=== PATIENT | male | born 1955 | race Asian ===

== ENCOUNTER 2017-04-11 15:35 | Inpatient (IN) | payer BC ==
[~2017-04-11] VITALS: Ht 175.3 cm; Wt 87.2 kg
[2017-04-11] MEDS ORDERED: MAG HYDROX/ALUMINUM HYD/SIMETH 30 ML ORAL.SUSP PO PRN (18:45)
[2017-04-11] MEDS ORDERED: MAGNESIUM HYDROXIDE 2,400 MG/30 ML ORAL.SUSP. PO PRN (18:45)
[2017-04-11] MEDS ORDERED: PROCHLORPERAZINE 10 MG/2 ML VIAL. IV PRN (18:45)
[2017-04-11] MEDS ORDERED: CALCIUM CARBONATE 500 MG TAB.CHEW PO PRN (18:45)
[2017-04-11] MEDS ORDERED: IBUPROFEN 400 MG TABLET. PO PRN (18:45)
[2017-04-11] MEDS ORDERED: HEPARIN for IV BOLUS 10,000 UNIT/10 ML VIAL. IV PRN (18:45)
[2017-04-11] MEDS ORDERED: ZOLPIDEM 5 MG TABLET. PO PRN (18:45)
[2017-04-11] MEDS ORDERED: PROCHLORPERAZINE 25 MG SUPP.RECT. PR PRN (18:45)
[2017-04-11] MEDS ORDERED: MORPHINE SULFATE 2 MG/ML DISP.SYRIN. IV PRN (18:45)
[2017-04-11] MEDS ORDERED: ONDANSETRON PF 4 MG/2 ML VIAL. IV PRN (18:45)
[2017-04-11] MEDS ORDERED: BISACODYL 10 MG SUPP.RECT. PR PRN (18:45)
[2017-04-11] MEDS ORDERED: LACTULOSE 20 GM/30 ML SOLUTION. PO PRN (18:45)
[2017-04-11] MEDS ORDERED: KETOROLAC 15 MG/ML VIAL. IV PRN (18:45)
[2017-04-11 19:00] VITALS: BP 163/71
[2017-04-11] MEDS ORDERED: HYDROcodone/APAP 10/325 1 TAB TABLET PO PRN (19:00)
[2017-04-11] MEDS ORDERED: NICOTINE POLACRILEX 2MG GUM PACKAGE of 12. BC PRN (19:00)
[2017-04-11] MEDS: HEPARIN 25,000UTS/500ML PREMIX 500 ML IV PRN (19:00)
--- NOTE | 2017-04-11 19:11 | PDOC1 ---
History and Physical Date of Admission Date of Admission DATE: 04/11/17 TIME: 19:06 Identification/Chief Complaint Chief Complaint chest pain Problems: Source Source: Caregiver, Chart review, Patient History of Present Illness History of Present Illness 61 y.o pleasant male, smoker 1/5 pack a day, HTN and Dyslipidemia on meds (claims complaince) transferred from [place] for CP and elev trop 0.2. Started to have cp at rest, left sided, burning, pressure, no precipitating factor, alleviated by morphine at ER, later then involved the left arm, no reports of diaphoresis or presyncopal sxs. Initially started from the back, VS ok,. EKG shows sravan-septal changes, started on heparin gtt with trop x 1 is 0.2. Transferred here with Cardio aware. CP free. HAs had stress test done before distant past ok, younger bro heart probs < 55 y.o. No etoh but smokes, No DM, no known personal hx CAD. Past Medical History Cardiovascular: HTN, Hyperlipidemia Past Surgical History Past Surgical History: No pertinent history Family History Family History: Heart Disease, High Cholestrol, Hypertension Social History Smoke: <1 pack per day ALCOHOL: none Drugs: None Current Medications Current Medications Current Medications Ondansetron HCl (Zofran) 4 mg PRN Q6HRS PRN IV NAUSEA/VOMITING; Start 04/11/17 at 18:45 Prochlorperazine Edisylate (Compazine) 10 mg PRN Q6HRS PRN IV NAUSEA/VOMITING ( 2nd CHOICE); Start 04/11/17 at 18:45 Prochlorperazine (Compazine) 25 mg PRN Q12HR PRN SD NAUSEA/VOMITING; Start at 18:45 Al Hydroxide/Mg Hydroxide (Mylanta Plus Xs) 30 ml PRN Q3HRS PRN PO HEARTBURN / GAS; Start 04/11/17 at 18:45 Calcium Carbonate/ Glycine (Tums) 500 mg PRN Q3HRS PRN PO UPSET STOMACH; Start 04/11/17 at 18:45 Zolpidem Tartrate (Ambien) 5 mg PRN QHS PRN PO INSOMNIA, MAY REPEAT IN 1HR; Start 04/11/17 at 18:45 Oxycodone HCl (Roxicodone) 5 mg PRN Q3HRS PRN PO BREAKTHROUGH PAIN; Start 04/11 at 18:45 Morphine Sulfate 2 mg PRN Q2HR PRN IV PAIN; Start 04/11/17 at 18:45 Ketorolac Tromethamine (Toradol) 15 mg PRN Q6HRS PRN IV PAIN; Start 04/11/17 at 18:45; Stop 04/16/17 at 18:44 Acetaminophen (Tylenol) 650 mg PRN Q6HRS PRN PO Headaches, Temp > 101.5F; Start 04/11/17 at 18:45 Ibuprofen (Motrin) 400 mg PRN Q6HRS PRN PO MILD PAIN; Start 04/11/17 at 18:45 Docusate Sodium (Colace) 100 mg BID PO ; Start 04/11/17 at 21:00 Magnesium Hydroxide (Milk Of Magnesia) 2,400 mg PRN Q12HR PRN PO CONSTIPATION ( 1ST CHOICE); Start 04/11/17 at 18:45 Lactulose 20 gm PRN Q12HR PRN PO CONSTIPATION (2ND CHOICE); Start 04/11/17 at 18:45 Bisacodyl (Dulcolax Supp) 10 mg PRN DAILY PRN SD CONSTIPATION; Start 04/11/17 at 18:45 Heparin Sodium/ Dextrose 500 ml @ 0 mls/hr CONT PRN IV SEE I/O RECORD; Start at 18:45; Status UNV Heparin Sodium (Porcine) (Heparin Sodium) 1,650 unit PRN Q6HRS PRN IV FOR UFH LEVEL LESS THAN 0.2; Start 04/11/17 at 18:45 Allergies Allergies: Coded Allergies: No Known Drug Allergies (Unverified , 04/11/17) ROS Review of System as per HPI, all else is neg Physical Exam General: Alert, Oriented X3, Cooperative, No acute distress HEENT: Atraumatic, PERRLA, EOMI Lungs: Clear to auscultation, Normal air movement Heart: S1S2, RRR, no thrills, no rubs, no gallops, no murmurs Cardiovascular: S1, S2 Breasts: Normal, Rt breast nml w/o mass, Lt breast nml w/o mass, Nipples normal Abdomen: Normal bowel sounds, Soft, No tenderness, No hepatosplenomegaly, No masses Male Genitals Exam: normal genitalia, normal prostate Extremities: No clubbing, No cyanosis, No edema, Normal pulses, No tenderness/ swelling Skin: No rashes, No breakdown, No significant lesion Neuro: Normal gait, Normal speech, Strength at 5/5 X4 ext, Normal tone, Sensation intact, Cranial nerves 3-12 NL, Reflexes 2+ Psych/Mental Status: Mental status NL, Mood NL VTE Prophylaxis Ordered VTE Prophylaxis Devices: Yes VTE Pharmacological Prophylaxi: Yes Assessment/Plan Assessment/Plan 1, Chest pain at rest 2. Trop elevation (0.2) 3. HTN, Dyslipidemia 4. Smoker 0.5 packa day 5. FAm hx CAD, premature (age < 55) 6, CHronic lumbago - takes hydrocodone 10 PLAN: Admit [facility] CARds consult HEparin gtt advised by cards SHAYE Nicotine prn NPO post MN in case mPI or LHC Dw pt Cont home meds - awaiting them Lipid panel AMANDA Medley MD Apr 11, 2017 19:11
[2017-04-11] MEDS: NICOTINE 21MG PATCH. TD SCH (19:15)
[2017-04-11] MEDS ORDERED: BYSTOLIC10 MG PO (19:46)
[2017-04-11] MEDS ORDERED: ALBU2.5V14 NEB (19:46)
[2017-04-11] MEDS ORDERED: ATOR20TA58 PO (19:46)
[2017-04-11] MEDS ORDERED: VALS320T2 PO (19:46)
[2017-04-11] MEDS ORDERED: FINA5TAB4 PO (19:46)
[2017-04-11] MEDS ORDERED: HYDR-2762 PO (19:46)
[2017-04-11] MEDS ORDERED: TADA20TA PO (19:46)
[2017-04-11] MEDS ORDERED: NAPR500T3 PO (19:46)
[2017-04-11] MEDS ORDERED: FAMO20TA5 PO (19:46)
[2017-04-11] MEDS ORDERED: TADALAFIL 20 MG PO PRN (20:00)
[2017-04-11] MEDS ORDERED: FAMOTIDINE 20 MG TABLET. PO PRN (20:00)
[2017-04-11] MEDS ORDERED: NON FORMULARY ITEM (Albuterol Sulfate (Albuterol Sulfate Conc Neb Soln) 2.5 MG) NEB PRN (20:00)
[2017-04-11] MEDS ORDERED: ALBUTEROL SULFATE 2.5 MG/3 ML NEBU. NEB PRN (20:15)
[2017-04-11 20:21] LABS: CKMB MASS 8.4 ng/mL (0.0-3.6)
[2017-04-11] MEDS: FINASTERIDE 5 MG TABLET. PO SCH (20:41)
[2017-04-11] MEDS: DOCUSATE SODIUM 100 MG CAPSULE. PO SCH (20:41)
[2017-04-11] MEDS: METOPROLOL TART IMMED RELEASE 50 MG TABLET. PO SCH (20:43)
[2017-04-11] MEDS: LOSARTAN POTASSIUM 50 MG TABLET. PO SCH (20:44)
[2017-04-11] MEDS ORDERED: ATORVASTATIN CALCIUM 20 MG TABLET PO SCH (21:00)
[2017-04-11 21:06] LABS: ALBUMIN 3.6 g/dL (3.4-5.0); ALBUMIN/GLOBULIN RATIO 1.1 (1.0-1.7); CALCIUM 8.8 mg/dL (8.5-10.1); CREATININE 0.9 mg/dL (0.7-1.3); GFR 86.4; POTASSIUM 3.7 mmol/L (3.5-5.1); TOTAL BILIRUBIN 0.4 mg/dL (0.2-1.0); TOTAL PROTEIN 6.8 g/dL (6.4-8.2)
[2017-04-11 23:00] VITALS: BP 121/63
[2017-04-12] VITALS (7 sets, daily range): BP systolic 121–180; BP diastolic 52–87
[2017-04-12 04:35] LABS: BASO % 0 % (0-3); EOS % 4 % (0-3); HEMATOCRIT 41.1 % (39.0-53.0); HEMOGLOBIN 14.2 g/dL (13.0-17.5); LYMPH # 3.3 x10^3/uL (1.0-4.8); LYMPH % 37 % (24-48); MEAN CORPUSCULAR HEMOGLOBIN 33 pg (25-35); MEAN CORPUSCULAR HGB CONC 35 g/dL (31-37); MEAN CORPUSCULAR VOLUME 94 fL (79-100); MONO % 10 % (0-9); NEUT % 50 % (31-73); PLATELET COUNT 252 x10^3/uL (140-400); RED BLOOD COUNT 4.37 x10^6/uL (4.30-5.70); RED CELL DISTRIBUTION WIDTH 13.6 % (11.5-14.5)
[2017-04-12 04:42] LABS: PROTHROMBIN TIME PATIENT 12.7 SEC (11.7-14.0)
[2017-04-12 05:07] LABS: CHOLESTEROL 183 mg/dL (0-200); HDLC 24 mg/dL (40-60); NON-HDL CHOLESTEROL 159 mg/dL (0-129); TRIGLYCERIDES 786 mg/dL (0-150)
[2017-04-12 05:28] LABS: CHOLESTEROL/HDL RATIO 7.6
--- NOTE | 2017-04-12 05:45 | ACF ---
Admission Forms Criteria CARDIOLOGY GRG Clinical Indications for Admission to Inpatient Care ( [place]/check or initial the applicable condition/criteria) Hospital admission is needed for appropriate care of the patient because of ANY ONE of the following: [ ] I. Hemodynamic instability as indicated by ALL of the following (1)(2)(3) (4)(5)(6)(7)(8)(9)(10) [ ]a) Vital sign abnormality not readily corrected by appropriate treatment with 12-24 hours for ANY ONE: [ ]i) Hypotension that persists despite appropriate treatment (eg, volume repletion) [ ]ii) Tachycardiathat persists despite appropriate tx ( e.g., analgesia, fluids, sedation as indicated [ ]iii) Orthostatic vital sign changes that persists despite appropriate treatment (eg, volume repletion) [ ]b) Vital sign abnormailty that is severe indicated by ANY ONE of the following: [ ]i) Inadequate perfusion indicated by ANY ONE of the following: [ ] 1) Lactic acidosis (> 2 mmol/L) [ ] 2) New abnormal capillary refill (> 3 seconds) [ ] 3) Reduced urine output [ ] 4) New altered mental status [ ] 5) Myocardial Ischemia [ ] 6) Other metabolic acidosis (arterial pH <7.35 ) not otherwise explained. [ ]ii) Mean arterial pressure[A] less than 60 mm Hg [ ]iii) Mean arterial pressure[A] less than 70 mm Hg after 30 minutes of appropriate treatment (eg, fluid resuscitation) [ ]iv) Sustained heart rate greater than 120 beats per minute in adult or child 6 years or older[B] [ ]v) IV inotropic or vasopressor medication required to maintain adequate blood pressure or perfusion [ ] II. Severe heart failure as indicated by ANY ONE of the following(17)(18) [ ]a) Respiratory distress [ ]b) Hypotension [ ]c) Debilitating anasarca refractory to therapy (eg, tissue breakdown with infection)[C](19) [ ]d) Cardiac arrhythmias of immediate concern [ ]e) Myocardial ischemia [ ] III. Cardiac arrhythmias or findings of immediate concern indicated by ANY ONE of the following (21)(22): [ ] a) Heart rhythms that are inherently dangerous or unstable indicated by ANY ONE of the following (23)(24)(25): [ ] i) Resuscitated ventricular fibrillation or cardiac arrest [ ] ii) Ventricular escape rhythm [ ] iii) Sustained ventricular tachycardia (30 seconds or more of ventricular rhythm at greater than 100 beats per minute) [ ] iv) Nonsustained ventricular tachycardia and ANY ONE of the following: [ ] 1) Suspected cardiac ischemia as cause or consequence of ventricular tachycardia [ ] 2) Acute myocarditis [ ] b) Unstable cardiac conduction defects indicated by ANY ONE of the following(25)(26)(27) [ ] i) Type II second-degree atrioventricular block [ ]ii) Third-degree atrioventricular block [ ]iii) New-onset left bundle branch block with suspected myocardial ischemia [ ]c) Any heart rhythm and ANY ONE of the following (23)(24)(28)(29) (30) [ ] i) Continuous long-term ECG monitoring needed (e.g., initiation of drug requiring monitoring for more than 24 hours) [ ] ii) Patient has automatic implanted cardioverter defibrillator that is repeatedly firing, malfunctioning, or in need of immediate adjustment of settings beyond the scope of ambulatory or observation care [ ]d) Heart rhythms of concern due to ANY ONE of the following: [ ] i) Hypotension [ ] ii) Respiratory distress [ ] iii) Association with other significant symptoms (e.g., bradycardia with syncope or ongoing dizziness, supraventricular tachycardia with chest pain (28)(29)(31) [ ] IV. Monitoring for cardiac contusion beyond the scope of observation care needed [A](32)(33)(34) [ ] V. Surgical or device complication (e.g., valve replacement complication , ICD disfunction or pacemaker dysfunction) (49)(50)(51)(52)(53)(54) [ ] . Inpatient palliative care needed. [F](51)(52) Also use Inpatient Palliative Care Criteria [ ] VII. Nonbacterial thrombotic (marantic) endocarditis(43)(44)(55)(56)(57) [X ] VIII. Cardiology condition, symptom, or finding for which emergency and observation care has failed or are not considered appropriate. [ ] IX. Acute valvular disease requiring inpatient as indicated by ANY ONE of the following (40)(41) [ ]a) Acute valvular regurgitation (42) [ ]b) Noninfectious valvulitis (43)(44) [ ]c) Obstructive valve thrombosis (45)(46) [ ]d) Paravalvular leak(47)(48) [ ]e) Other significant valvular disorder remaining after emergency or observation level of care (as appropriate) [ ]X. Pericardial disease requiring inpatient treatment as indicated by ANY ONE of the following (35)(36)(37)(38) [ ]a) Suspected tamponade [ ]b) Hemopericardium [ ]c) Other significant pericardial disorder remaining after emergency or observation level of care (as appropriate)(39) [ ] XI. Cardiac ischemia beyond scope of emergency and observation care. [ ] XII. Cyanotic heart disease requiring inpatient care as indicated by 1 or more of the following(58)(59)(60): [ ]a) Acute onset of hypoxemia [ ]b) Exacerbation [ ] XIII. Hypertension requiring inpatient treatment as indicated by ANYONE of the following(11)(12)(13)(14): [ ]a) Severe hypertension (SBP greater than 180 mm Hg or DBP greater than 110 mm Hg, or greater than the 95th percentile for age, gender, and height in pediatric patients) that cannot be controlled (eg, to SBP less than 160 mm Hg and DBP less than 100 mm Hg) by emergency department or observation care treatment(15) [ ]b) Acute end organ damage secondary to hypertension (SBP greater than 140 mm Hg or DBP greater than 90 mm Hg) as indicated by ANYONE of the following: [ ] i) Hypertensive encephalopathy (eg, Altered mental status)(16) [ ] ii) Cerebral infarction [ ] iii) Intracranial hemorrhage [ ] iv) Myocardial ischemia or infarction [ ] v) Heart failure (eg, pulmonary edema) [ ] vi) Aortic dissection [ ] vii) Increased creatinine (new) with reduction of more than 50% in estimated glomerular filtration rate from baseline [ ] viii) Papilledema [ ] ix) Retinal hemorrhage [ ] x) Microangiopathic hemolytic anemia [ ] xi) Seizure [ ] xii) Other significant finding secondary to hypertension [ ] XIV. Complications of transplanted heart indicated by ANY ONE of the following(61): [ ]a) Acute graft rejection requiring inpatient management (eg, intravenous imunosuppression)(62)(63) [ ]b) Acute graft heart failure indicated by ANY ONE of the following(64): [ ] i) Hemodynamic instability [ ] ii) Cardiac arrhythmias of immediate concern [ ] iii) Pulmonary edema that is very severe (eg, mechanical ventilation needed, imminent or likely, need for 100% oxygen to keep oxygen saturation above 90%) [ ] iv) Pulmonary edema that is persistent as indicated by ALL of the following: [ ] 1) New need for oxygen therapy to keep oxygen saturation above 90 % (or increased FiO2 need from baseline) [ ] 2) Has not improved sufficiently with emergency department or observation care IV diuretics or other heart failure treatments[E]. [ ] iv) Altered mental status that is severe or persistent [ ] iv) Increased creatinine (new on laboratory test) with reduction of more than 50% in estimated glomerular filtration rate from baseline [ ] iv) Progressively (ongoing) rising creatinine (known from past laboratory test) with reduction of more than 25% in estimated glomerular filtration rate from baseline [ ] iv) Acute renal failure [ ] iv) Acute peripheral ischemia (eg, examination shows pulseless, cool, mottled, or cyanotic extremity) [ ] iv) Pulmonary artery catheter monitoring needed [ ] iv) Other sign or symptom of heart failure requiring inpatient treatment (ie, too severe or not responsive to outpatient and observation care treatment) [ ]c) Infection requiring inpatient management (eg, Hemodynamic instability, need for intravenous antimicrobial treatment)(66)(67)(68)(69)(70) [ ]d) Cardiac allograft vasculopathy requiring inpatient management (eg evidence of cardiacischemia)(71) [ ]e) Other complication of transplanted heart (eg, stroke, severe pulmonary hypertension, severe valvular dysfunction) requiring inpatient management(72) The original [facility] content created by [facility] has been revised. The portions of the content which have been revised are identified through the use of italic text, and [facility] has neither reviewed nor approved the modified material. All other unmodified content is copyright [facility]. Please see references footnoted in the original [facility] edition 2014 Admission Criteria Met?: Yes DAVID MCADAMS Apr 12, 2017 05:45
[2017-04-12] MEDS: DOCUSATE SODIUM 100 MG CAPSULE. PO SCH ×2 (08:56→21:32)
[2017-04-12] MEDS: oxyCODONE IR 5 MG TABLET PO PRN ×3 (08:56→19:42)
[2017-04-12] MEDS: METOPROLOL TART IMMED RELEASE 50 MG TABLET. PO SCH (08:56)
[2017-04-12] MEDS: NICOTINE 21MG PATCH. TD SCH (09:00)
[2017-04-12 09:25] LABS: CALCIUM 8.5 mg/dL (8.5-10.1); CREATININE 1.2 mg/dL (0.7-1.3); MAGNESIUM 1.8 mg/dL (1.8-2.4); POTASSIUM 3.6 mmol/L (3.5-5.1)
[2017-04-12] MEDS ORDERED: hydrALAZINE 20 MG/ML VIAL. IVP PRN (10:00)
--- NOTE | 2017-04-12 10:10 | PDOC2 ---
NICHOLE BROWN STRATEGY ANALYST 04/12/17 1010: CARDIAC CONSULT DATE OF CONSULT Date of Consult DATE: 04/12/17 TIME: 09:37 REASON FOR CONSULT Reason for Consult: Chest pain, elevated troponin REFERRING PHYSICIAN Referring Physician: Johnnie SOURCE Source: Chart review, Patient HISTORY OF PRESENT ILLNESS HISTORY OF PRESENT ILLNESS This is a pleasant 61 yo male admitted for complains of chest and back discomfort. Initially he was at [place] [facility] and transferred here for further cardiac workup. Reports that he does yardwork at times and he has not been having problems with exertion. Yesterday after coming from grocery store, he started having burning sensation to his bilateral shoulder blades then to his chest then to his neck and left arm. There was no nausea, diaphoresis or chest pressure. Ion any palpitations, dizziness, nor SOA. Denies any recent falls or injury. No CAD, VTE. He takes NSAIDs PRN but does not take any ASA at all. HE has HTN, HLP, but no DM and verbalized compliance with his medications. PAST MEDICAL HISTORY Cardiovascular: HTN, Hyperlipidemia Pulmonary: No pertinent hx CENTRAL NERVOUS SYSTEM: Other (No pertinent history) GI: GERD Heme/Onc: No pertinent hx Hepatobiliary: No pertinent hx Psych: No pertinent hx Musculoskeletal: Osteoarthritis Rheumatologic: No pertinent hx Infectious disease: No pertinent hx ENT: No pertinent hx Renal/: Benign prostatic enlarg., Other (ED) Endocrine: No pertinent hx Dermatology: No pertinent hx PAST SURGICAL HISTORY Past Surgical History: Cholecystectomy, Other (vasectomy) SOCIAL HISTORY Smoke: <1 pack per day (>40 pk yr) ALCOHOL: none Drugs: None Lives: Alone CURRENT MEDICATIONS CURRENT MEDICATIONS Current Medications Medications (Trade) Dose Ordered Sig/Sury Route PRN Reason Start Time Stop Time Status Last Admin Dose Admin Oxycodone HCl (Roxicodone) 5 mg PRN Q3HRS PRN PO BREAKTHROUGH PAIN 04/11/17 18:45 04/12/17 08:56 Docusate Sodium (Colace) 100 mg BID PO 04/11/17 21:00 04/12/17 08:56 Heparin Sodium/ Dextrose 500 ml @ 20 mls/hr CONT PRN IV SEE I/O RECORD 04/11/17 18:45 04/11/17 19:00 Heparin Sodium (Porcine) (Heparin Sodium) 1,650 unit PRN Q6HRS PRN IV FOR UFH LEVEL LESS THAN 0.2 04/11/17 18:45 04/12/17 09:01 Atorvastatin Calcium (Lipitor) 20 mg QHS PO 04/11/17 21:00 04/11/17 20:41 Finasteride (Proscar) 5 mg HS PO 04/11/17 21:00 04/11/17 20:41 Metoprolol Tartrate (Lopressor) 50 mg BID PO 04/11/17 21:00 04/12/17 08:56 Losartan Potassium (Cozaar) 100 mg QHS PO 04/11/17 21:00 04/11/17 20:44 ALLERGIES ALLERGIES: Coded Allergies: No Known Drug Allergies (Unverified , 04/11/17) ROS Review of System 14 point ROS evaluated with pertinent positives noted per HPI PHYSICAL EXAM General: Alert, Oriented X3, Cooperative, No acute distress HEENT: Atraumatic, Mucous membr. moist/pink Lungs: Clear to auscultation, Normal air movement Heart: Regular rate, Normal S1, Normal S2, Other (distant heart sounds) Abdomen: Soft, No tenderness Extremities: No cyanosis, No edema Skin: No breakdown, No significant lesion Neuro: Normal speech, Sensation intact Psych/Mental Status: Mental status NL, Mood NL MUSCULOSKELETAL: Osteoarthritic changes both hands VITALS VITALS Vital Signs Date Time Temp Pulse Resp B/P (MAP) Pulse Ox O2 Delivery O2 Flow Rate FiO2 04/12/17 08:56 54 169/78 04/12/17 08:56 Room Air 04/12/17 07:58 97.8 18 96 97.8 LABS Lab: Laboratory Tests Test 04/11/17 19:30 04/11/17 20:55 04/12/17 04:18 04/12/17 07:40 Sodium Level 141 mmol/L (136-145) 139 mmol/L (136-145) Potassium Level 3.7 mmol/L (3.5-5.1) 3.6 mmol/L (3.5-5.1) Chloride Level 104 mmol/L (98-107) 103 mmol/L (98-107) Carbon Dioxide Level 24 mmol/L (21-32) 23 mmol/L (21-32) Anion Gap 13 (6-14) 13 (6-14) Blood Urea Nitrogen 14 mg/dL (8-26) 12 mg/dL (8-26) Creatinine 0.9 mg/dL (0.7-1.3) 1.2 mg/dL (0.7-1.3) Estimated GFR (Cockcroft-Gault) 86.4 62.0 BUN/Creatinine Ratio 16 (6-20) Glucose Level 205 mg/dL (70-99) 142 mg/dL (70-99) Calcium Level 8.8 mg/dL (8.5-10.1) 8.5 mg/dL (8.5-10.1) Phosphorus Level 4.1 mg/dL (2.6-4.7) Magnesium Level 1.7 mg/dL (1.8-2.4) 1.8 mg/dL (1.8-2.4) Total Bilirubin 0.4 mg/dL (0.2-1.0) Aspartate Amino Transf (AST/SGOT) 23 U/L (15-37) Alanine Aminotransferase (ALT/SGPT) 35 U/L (16-63) Alkaline Phosphatase 55 U/L (46-116) Creatine Kinase 177 U/L (39-308) Creatine Kinase MB (Mass) 8.4 ng/mL (0.0-3.6) Creatine Kinase MB Relative Index 4.7 % (0-4) Troponin I Quantitative 0.687 ng/mL (0.000-0.055) 1.265 ng/mL (0.000-0.055) Total Protein 6.8 g/dL (6.4-8.2) Albumin 3.6 g/dL (3.4-5.0) Albumin/Globulin Ratio 1.1 (1.0-1.7) Heparin Anti-Xa Act, Unfractionated 0.31 IU/mL (0.30-0.70) < 0.10 IU/mL (0.30-0.70) < 0.10 IU/mL (0.30-0.70) White Blood Count 9.0 x10^3/uL (4.0-11.0) Red Blood Count 4.37 x10^6/uL (4.30-5.70) Hemoglobin 14.2 g/dL (13.0-17.5) Hematocrit 41.1 % (39.0-53.0) Mean Corpuscular Volume 94 fL (79-100) Mean Corpuscular Hemoglobin 33 pg (25-35) Mean Corpuscular Hemoglobin Concent 35 g/dL (31-37) Red Cell Distribution Width 13.6 % (11.5-14.5) Platelet Count 252 x10^3/uL (140-400) Neutrophils (%) (Auto) 50 % (31-73) Lymphocytes (%) (Auto) 37 % (24-48) Monocytes (%) (Auto) 10 % (0-9) Eosinophils (%) (Auto) 4 % (0-3) Basophils (%) (Auto) 0 % (0-3) Neutrophils # (Auto) 4.5 x10^3uL (1.8-7.7) Lymphocytes # (Auto) 3.3 x10^3/uL (1.0-4.8) Monocytes # (Auto) 0.9 x10^3/uL (0.0-1.1) Eosinophils # (Auto) 0.3 x10^3/uL (0.0-0.7) Basophils # (Auto) 0.0 x10^3/uL (0.0-0.2) Prothrombin Time 12.7 SEC (11.7-14.0) Prothromb Time International Ratio 1.0 (0.8-1.1) Triglycerides Level 786 mg/dL (0-150) Cholesterol Level 183 mg/dL (0-200) LDL Cholesterol, Calculated mg/dL (0-100) VLDL Cholesterol, Calculated 157 mg/dL (0-40) Non-HDL Cholesterol Calculated 159 mg/dL (0-129) HDL Cholesterol 24 mg/dL (40-60) Cholesterol/HDL Ratio 7.6 ASSESSMENT/PLAN ASSESSMENT/PLAN 1. NSTEMI: HR occasionally 40-50s 2. HLP: with high TG 700s 3. HTN: controlled 4. Tobaccoism 5. Significant family hx of premature CAD and cardiomyopathy: Brother first [place] at 26 with CM, other brother with stroke, Father had KS. Recommendations 1. Presently asymptomatic. Will plan for [facility] tomorrow. Risks and benefits explained and agreeable to proceed. 2. ASA. continue with heparin drip. 3. Continue with statin at increased dose and will add fenofibrate 4. A1C, TSH, trend troponin 5. Smoking cessation, dietitian consult 6. TTE. 7. Decrease BB and will add norvasc, continue with losartan. Problems: CINDY OLIVA MD 04/13/17 1058: CARDIAC CONSULT ALLERGIES ALLERGIES: Coded Allergies: No Known Drug Allergies (Unverified , 04/11/17) ASSESSMENT/PLAN ASSESSMENT/PLAN Patient seen and examined 04/12/17. Agree with CARPET TECHNICIAN's assessment and plan. Patient with NSTEMI, currently CP free. Agree with heparin infusion per protocol. Plan for cardiac cath and PCI tomorrow. Advised smoking cessation. Thank you for your consultation. Problems: NICHOLE BROWN APRN Apr 12, 2017 10:10 CINDY OLIVA MD Apr 13, 2017 10:58
[2017-04-12] MEDS: ASPIRIN ENTERIC COATED 325 MG TABLET.DR. PO SCH (10:45)
[2017-04-12] MEDS: amLODIPine BESYLATE 5 MG TABLET PO SCH (10:46)
[2017-04-12] MEDS: FENOFIBRATE 54 MG TABLET. PO SCH (10:48)
--- NOTE | 2017-04-12 11:02 | EKG ---
[facility] [address] [place] [address] Test Date: 2017-04-12 Test Time: 10:51:43 Pat Name: RIKI CENTENO Department: Room: 206 1 Gender: M Manager [employer]: NILS : 1955 Requested By: NICHOLE BROWN Order Number: [id number] Reading MD: Eduar Matthews Measurements Intervals [place] Rate: 53 P: 41 HI: 146 QRS: 64 QRSD: 90 T: 57 QT: 470 QTc: 443 Interpretive Statements SINUS RHYTHM Electronically Signed On 04-13-2017 9:43:25 CDT by Eduar Matthews
--- NOTE | 2017-04-12 11:50 | CARD ---
APPROVED REPORT EXAM: Two-dimensional and M-mode echocardiogram with Doppler and color Doppler. Other Information Quality : Fair INDICATION Non STEMI RISK FACTORS Smoking 2D DIMENSIONS RVDd2.4 (2.9-3.5cm)Left Atrium(2D)3.2 (1.6-4.0cm) IVSd1.2 (0.7-1.1cm)Aortic Root(2D)2.6 (2.0-3.7cm) LVDd4.9 (3.9-5.9cm)LVOT Diameter2.0 (1.8-2.4cm) PWd1.1 (0.7-1.1cm)LVDs2.4 (2.5-4.0cm) FS (%) 30.0 %SV92.6 ml LVEF(%)60.0 (>50%) Aortic Valve AoV Peak Pranav.166.2cm/sAoV VTI32.3cm AO Peak GR.11.1mmHgLVOT Peak Pranav.131.5cm/s LVOT VTI 29.05cmAO Mean GR.6mmHg EVA (VMAX)2.37ch6UQM (VTI)2.83cm2 Mitral Valve MV E Qiawifhu031.2cm/sMV DECEL [id number] MV A Fvpfqfds75.2cm/sMV BBZ64az E/A Ratio1.2MVA (PHT)2.77cm2 TDI E/Lateral E'13.0E/Medial E'20.4 Tricuspid Valve TR P. Vvljyphf994ur/sRAP [id number] TR Peak Gr.49gtYnYNLQ33hcCr Pulmonary Vein S1 Gytdpopz59.6cm/sD2 Pwpvftej02.1cm/s LEFT VENTRICLE The left ventricle is normal size. There is mild asymmetric septal left ventricular hypertrophy. The left ventricular systolic function is normal and the ejection fraction is within normal range. EF 55% There is normal LV segmental wall motion. Transmitral Doppler flow pattern is Grade I-abnormal relax ation pattern. RIGHT VENTRICLE The right ventricle is normal size. The right ventricular systolic function is normal. ATRIA The left atrium size is normal. The right atrium size is normal. The interatrial septum is intact wit h no evidence for an atrial septal defect or patent foramen ovale as noted on 2-D or Doppler imaging. AORTIC VALVE The aortic valve is sclerotic but opens well. Doppler and Color Flow revealed no significant aortic r egurgitation. There is no significant aortic valvular stenosis. MITRAL VALVE The mitral valve is calcified but opens well. There is no evidence of mitral valve prolapse. There is no mitral valve stenosis. Doppler and Color-flow revealed trace mitral regurgitation. TRICUSPID VALVE The tricuspid valve is normal in structure and function. Doppler and Color Flow revealed mild tricusp id regurgitation. The PA pressure was estimated at 32 mmHg. There is no tricuspid valve stenosis. PULMONIC VALVE The pulmonary valve is not well visualized but appears to be functioning normally by Doppler interrog ation. Doppler and Color Flow revealed no pulmonic valvular regurgitation. There is no pulmonic valvu lar stenosis. GREAT VESSELS The aortic root is normal in size. The ascending aorta is normal in size. The IVC is normal in size a nd collapses >50% with inspiration. PERICARDIAL EFFUSION There is no evidence of significant pericardial effusion. Critical Notification Critical Value: No <Conclusion> The left ventricular systolic function is normal and the ejection fraction is within normal range. EF 55% There is normal LV segmental wall motion.
[2017-04-12] MEDS: ACETAMINOPHEN 325 MG TABLET. PO PRN (13:41)
--- NOTE | 2017-04-12 13:58 | PDOC ---
PROGRESS NOTES Chief Complaint Chief Complaint Chest pain ASSESSMENT AND PLAN: 1. NSTEMI: elevated troponins tapering off. on heparin. cath in AM 2. HTN: poorly controlled. Norvasc added 3. HLD: cholesterol not optimally controlled on statin, severe hypertrigliceridemia. increase statin, add fenofibrate 3. Tobaccoism: encouraged cessation 4. GERD: H2B History of Present Illness History of Present Illness no pain. bored Vitals Vitals Vital Signs Date Time Temp Pulse Resp B/P (MAP) Pulse Ox O2 Delivery O2 Flow Rate FiO2 04/12/17 12:09 Room Air 04/12/17 12:00 54 160/72 (101) 04/12/17 10:37 97.7 20 97 97.7 Physical Exam General: Alert, Oriented X3, Cooperative, No acute distress Heart: Regular rate Abdomen: Soft, No tenderness Extremities: No cyanosis, No edema Skin: No significant lesion Labs LABS Laboratory Tests Test 04/11/17 19:30 04/11/17 20:55 04/12/17 04:18 04/12/17 07:40 Sodium Level 141 mmol/L (136-145) 139 mmol/L (136-145) Potassium Level 3.7 mmol/L (3.5-5.1) 3.6 mmol/L (3.5-5.1) Chloride Level 104 mmol/L (98-107) 103 mmol/L (98-107) Carbon Dioxide Level 24 mmol/L (21-32) 23 mmol/L (21-32) Anion Gap 13 (6-14) 13 (6-14) Blood Urea Nitrogen 14 mg/dL (8-26) 12 mg/dL (8-26) Creatinine 0.9 mg/dL (0.7-1.3) 1.2 mg/dL (0.7-1.3) Estimated GFR (Cockcroft-Gault) 86.4 62.0 BUN/Creatinine Ratio 16 (6-20) Glucose Level 205 mg/dL (70-99) 142 mg/dL (70-99) Calcium Level 8.8 mg/dL (8.5-10.1) 8.5 mg/dL (8.5-10.1) Phosphorus Level 4.1 mg/dL (2.6-4.7) Magnesium Level 1.7 mg/dL (1.8-2.4) 1.8 mg/dL (1.8-2.4) Total Bilirubin 0.4 mg/dL (0.2-1.0) Aspartate Amino Transf (AST/SGOT) 23 U/L (15-37) Alanine Aminotransferase (ALT/SGPT) 35 U/L (16-63) Alkaline Phosphatase 55 U/L (46-116) Creatine Kinase 177 U/L (39-308) Creatine Kinase MB (Mass) 8.4 ng/mL (0.0-3.6) Creatine Kinase MB Relative Index 4.7 % (0-4) Troponin I Quantitative 0.687 ng/mL (0.000-0.055) 1.265 ng/mL (0.000-0.055) Total Protein 6.8 g/dL (6.4-8.2) Albumin 3.6 g/dL (3.4-5.0) Albumin/Globulin Ratio 1.1 (1.0-1.7) Heparin Anti-Xa Act, Unfractionated 0.31 IU/mL (0.30-0.70) < 0.10 IU/mL (0.30-0.70) < 0.10 IU/mL (0.30-0.70) White Blood Count 9.0 x10^3/uL (4.0-11.0) Red Blood Count 4.37 x10^6/uL (4.30-5.70) Hemoglobin 14.2 g/dL (13.0-17.5) Hematocrit 41.1 % (39.0-53.0) Mean Corpuscular Volume 94 fL (79-100) Mean Corpuscular Hemoglobin 33 pg (25-35) Mean Corpuscular Hemoglobin Concent 35 g/dL (31-37) Red Cell Distribution Width 13.6 % (11.5-14.5) Platelet Count 252 x10^3/uL (140-400) Neutrophils (%) (Auto) 50 % (31-73) Lymphocytes (%) (Auto) 37 % (24-48) Monocytes (%) (Auto) 10 % (0-9) Eosinophils (%) (Auto) 4 % (0-3) Basophils (%) (Auto) 0 % (0-3) Neutrophils # (Auto) 4.5 x10^3uL (1.8-7.7) Lymphocytes # (Auto) 3.3 x10^3/uL (1.0-4.8) Monocytes # (Auto) 0.9 x10^3/uL (0.0-1.1) Eosinophils # (Auto) 0.3 x10^3/uL (0.0-0.7) Basophils # (Auto) 0.0 x10^3/uL (0.0-0.2) Prothrombin Time 12.7 SEC (11.7-14.0) Prothromb Time International Ratio 1.0 (0.8-1.1) Triglycerides Level 786 mg/dL (0-150) Cholesterol Level 183 mg/dL (0-200) LDL Cholesterol, Calculated mg/dL (0-100) VLDL Cholesterol, Calculated 157 mg/dL (0-40) Non-HDL Cholesterol Calculated 159 mg/dL (0-129) HDL Cholesterol 24 mg/dL (40-60) Cholesterol/HDL Ratio 7.6 Test 04/12/17 11:15 Troponin I Quantitative 0.865 ng/mL (0.000-0.055) GARCÍA MEHTA MD Apr 12, 2017 13:58
[2017-04-12] MEDS: HEPARIN 25,000UTS/500ML PREMIX 500 ML IV PRN (16:06)
[2017-04-12 20:44] LABS: BILIRUBIN,URINE NEGATIVE (NEG); GLUCOSE,URINE NEGATIVE (NEG); NITRITE,URINE NEGATIVE (NEG); PROTEIN,URINE NEGATIVE (NEG-TRACE); UROBILINOGEN,URINE 0.2 mg/dL (0.2 mg/dL)
[2017-04-12] MEDS: METOPROLOL TART IMMED RELEASE 25 MG TABLET. PO SCH (21:00)
[2017-04-12 21:01] LABS: BACTERIA,URINE 0 /HPF (0-FEW); RBC,URINE 0 /HPF (0-2); SQUAMOUS EPITHELIAL CELL,UR OCC /LPF; WBC,URINE OCC /HPF (0-4)
[2017-04-12] MEDS: LOSARTAN POTASSIUM 50 MG TABLET. PO SCH (21:31)
[2017-04-12] MEDS: ATORVASTATIN CALCIUM 40 MG TABLET. PO SCH (21:31)
[2017-04-12] MEDS: FINASTERIDE 5 MG TABLET. PO SCH (21:32)
[2017-04-12] MEDS: HYDROcodone/APAP 7.5/325MG 1 TAB TABLET PO PRN (21:33)
[2017-04-13] VITALS (17 sets, daily range): BP systolic 135–192; BP diastolic 61–96
[2017-04-13] MEDS: oxyCODONE IR 5 MG TABLET PO PRN ×3 (01:50→17:47)
[2017-04-13] MEDS: ASPIRIN ENTERIC COATED 325 MG TABLET.DR. PO SCH (08:00)
[2017-04-13] MEDS ORDERED: LIDOCAINE 2% 20 ML VIAL. ONE (08:50)
[2017-04-13] MEDS ORDERED: IOHEXOL 300 MG/ML 100ML VIAL. ONE ×3 (08:51→10:23)
[2017-04-13] MEDS ORDERED: LIDOCAINE 2% 20 ML VIAL. IJ ONE (09:00)
[2017-04-13] MEDS ORDERED: NITROGLYCERIN 200 MCG/2 ML SYRINGE FOR CATH/VASC LAB. IART ONE (09:00)
[2017-04-13] MEDS ORDERED: VERAPAMIL 5 MG/2 ML VIAL. IART ONE (09:00)
[2017-04-13] MEDS ORDERED: HEPARIN for IV BOLUS 10,000 UNIT/10 ML VIAL. IART ONE (09:00)
[2017-04-13] MEDS: NICOTINE 21MG PATCH. TD SCH ×2 (09:00→14:44)
[2017-04-13] MEDS: DOCUSATE SODIUM 100 MG CAPSULE. PO SCH ×2 (09:00→19:43)
[2017-04-13] MEDS: amLODIPine BESYLATE 5 MG TABLET PO SCH (09:00)
[2017-04-13] MEDS: METOPROLOL TART IMMED RELEASE 25 MG TABLET. PO SCH ×2 (09:00→19:44)
[2017-04-13] MEDS ORDERED: MIDAZOLAM HCL/PF 2 MG/2 ML VIAL. IV ONE (09:00)
[2017-04-13] MEDS ORDERED: IOHEXOL 300 MG/ML 100ML VIAL. IART ONE (09:00)
[2017-04-13] MEDS ORDERED: fentaNYL PF VIAL 100 MCG/2 ML VIAL IV ONE (09:00)
[2017-04-13] MEDS ORDERED: CONTRAST GIVEN MC PRN (09:15)
[2017-04-13] MEDS ORDERED: BIVALIRUDIN 250 MG VIAL. IV ONE ×2 (09:39→09:45)
[2017-04-13] MEDS ORDERED: ASPIRIN 325 MG TABLET ONE (09:39)
[2017-04-13] MEDS ORDERED: CLOPIDOGREL BISULFATE 75 MG TABLET ONE (09:40)
[2017-04-13] MEDS ORDERED: CLOPIDOGREL BISULFATE 75 MG TABLET PO ONE (09:45)
[2017-04-13] MEDS ORDERED: ASPIRIN 325 MG TABLET PO ONE (09:45)
[2017-04-13] MEDS ORDERED: MIDAZOLAM HCL/PF 2 MG/2 ML VIAL. ONE (10:14)
[2017-04-13] MEDS ORDERED: fentaNYL PF VIAL 100 MCG/2 ML VIAL ONE (10:14)
[2017-04-13] MEDS ORDERED: PRASUGREL 10 MG TABLET. PO ONE (10:45)
--- NOTE | 2017-04-13 10:46 | PDOC ---
MODERATE SEDATION ASSESSMENT RISKS/ALTERNATIVES Risks/Alternatives Risks and alternatives of this type of sedation and procedure discussed with: RISK/ALTERNATIVES: Patient H & P ON CHART H & P H & P on chart and reviewed for co-morbid conditions and appropriate labs. H&P ON CHART: Yes STATUS PREG STATUS ASSESSED: N/A MEDS/ALLERGIES REVIEWED Meds/Allergies Reviewed Medications and Allergies including time and route of recently administered narcotics and sedatives. MEDS/ALLERGIES REVIEWED: Yes ASA RATING ASA RATING: II AIRWAY ASSESSMENT Airway Assessment Airway patency, oral function limitations, presence of caps, crowns, dentures, partials, and ability to extend neck assessed. AIRWAY ASSESSMENT: Yes MALLAMPATI SCORE MALLAMPATI SCORE: II PRE-SEDATION ASSESSMENT PRE-SEDATION ASSESSMENT: Yes CINDY OLIVA MD Apr 13, 2017 10:46
[2017-04-13] MEDS ORDERED: ACETAMINOPHEN 325 MG TABLET. PO PRN (11:00)
[2017-04-13] MEDS ORDERED: NITROGLYCERIN SUBLINGUAL 0.4 MG BOTTLE OF 25. SL PRN (11:00)
[2017-04-13] MEDS ORDERED: IV 1/2 NORMAL SALINE 1,000 ML IV SCH (11:30)
[2017-04-13] MEDS: ACETAMINOPHEN 325 MG TABLET. PO PRN (11:34)
[2017-04-13] MEDS: FENOFIBRATE 54 MG TABLET. PO SCH (11:34)
--- NOTE | 2017-04-13 11:52 | CARD ---
APPROVED REPORT Procedure(s) performed: 1. Left heart catheterization, selective coronary angiography via right gonzalez sradial approach 2. Successful PCI/drug eluting stents placement to the right coronary artery and the posterior desce nding artery 3. Successful PCI/drug eluting stent placement to the obtuse marginal branch of left circumflex carlos ry Sedation Time: 88 mins INDICATION The indication(s) include : non-STEMI . PROCEDURE NARRATIVE After explaining the risks, benefits and alternative options, informed consent was obtained from nany ent. Patient was brought to the cardiac Actor Understudy and right wrist was prepped and draped in the usual fashion after confirming a positive modified Fercho's test. Arterial access was obtained in the righ t radial artery and a 6 [place] sheath was inserted. 6 [place] Stefano catheter was used to perform abdiel ective angiography of the left and right coronary arteries. LVEDP and transaortic gradients remeasure d. Left ventriculography was not performed due to recent 2-D echocardiogram and contrast load used du ring the procedure. The following findings were noted. FINDINGS 1. Hemodynamics: Left ventricular end-diastolic pressure of 17 mmHg. No pullback gradient across th e aortic valve. 2. Coronary angiography: a. The left main coronary artery arose from the left sinus of Valsalva, gave rise to the left anteri or descending and left circumflex arteries and did not show any significant stenosis. b. The left anterior descending artery showed 40% stenosis in the midsegment. c. The left circumflex artery showed 30% stenosis in the midsegment. The obtuse marginal branch whic h is a medium caliber vessel showed 80% stenosis in the proximal segment. d. The right coronary artery was a large and dominant vessel arising from the right sinus of Valsalv a that showed 80% stenosis in the proximal to midsegment, 70% stenosis in the midsegment, 90% stenosi s in the distal segment and 90-95% stenosis in the proximal segment of posterior descending branch. INTERVENTION The right coronary artery was engaged with a 6 [place] JR4 guide catheter and the stenoses in the righ t coronary artery and the posterior descending branch were crossed with a 0.014 inch iWantoowater g uidewire. These were predilated with a 2.5 x 15 mm trek balloon. The distal RCA and posterior descend ing branch stenoses were treated with overlapping 2.75 x 38 mm and 3.0 x 12 mm Xience Alpine drug-elu ting stents. The midsegment stenosis was treated with a 3.0 x 12 mm and the proximal to midsegment st enosis was treated with a 3.5 x 28 mm Xience Alpine drug-eluting stents. Follow-up angiography showed resolution of the stenoses to 0% with SOLO-3 distal flow. Subsequently, the left main coronary arter y was engaged with a 6 [place] EBU 3.5 guide catheter and the stenosis in the proximal segment of the obtuse marginal branch was crossed with the same prowater guidewire. This was directly treated with a 2.5 x 23 mm Xience Alpine drug-eluting stent. Follow-up angiography showed resolution of the stenosi s to 0% with SOLO-3 distal flow. Patient tolerated the procedure well. Hemostasis was achieved using TR band. There were no immediate complications. Conclusion 1. Two-vessel coronary artery disease 2. Successful PCI/drug eluting stents placement to the right coronary artery, posterior descending a rtery and the obtuse marginal branch of left circumflex artery Recommendations 1. Aspirin 325 mg daily 2. Effient 10 mg daily for preferably one year 3. Cardiovascular risk factor modification including smoking cessation
[2017-04-13] MEDS ORDERED: hydrALAZINE 20 MG/ML VIAL. IVP PRN (12:30)
[2017-04-13] MEDS: HYDROcodone/APAP 7.5/325MG 1 TAB TABLET PO PRN (12:58)
--- NOTE | 2017-04-13 13:47 | RAD ---
Exam performed: One view chest. Indication: post cath acute SOA Date of Service: 04/13/2017 3:17 PM Comparison: None available. Single AP upright portable view chest findings: Cardiomediastinal silhouette is within limits of normal. No acute infiltrates, effusion or pneumothorax is detected. The bony structures are normal. Impression: No acute cardiopulmonary process is detected.
--- NOTE | 2017-04-13 14:37 | PDOC ---
Provider Note Provider Note 04/13/2017 1420 Pt complains of SOA while supine and better when upright or at semi fowlers and intermittent. O2 sat on RA in the upper 90s, no hemodynamic decompensation, he is CP free, lungs are clear to auscultation and CXR unremarkable for acute changes. Albuterol treatment was given. BP initially elevated and better after hydralazine. Will increase norvasc. Right wrist arteriotomy site intact with TR band. Positive for nausea relieved by zofran. No deoxygenation noted and no rhythm changes. Pt is significant for opioid use and tobaccoism. Suspecting anxiety/panic attack. Start on nicotine patch, x1 ativan. Continue post cath protocol. NICHOLE BROWN APRN Apr 13, 2017 14:37
[2017-04-13] MEDS ORDERED: amLODIPine BESYLATE 5 MG TABLET PO ONE (15:00)
[2017-04-13] MEDS ORDERED: LORazepam 0.5 MG TABLET PO ONE (15:00)
--- NOTE | 2017-04-13 15:49 | PDOC ---
PROGRESS NOTES Chief Complaint Chief Complaint Chest pain ASSESSMENT AND PLAN: 1. NSTEMI: elevated troponins tapering off. on heparin. cath with 5 stents today. started on effient 2. HTN: poorly controlled. Norvasc added; cont to monitor 3. HLD: cholesterol not optimally controlled on statin, severe hypertrigliceridemia. increase statin, add fenofibrate 4. Tobaccoism: encouraged cessation 5. GERD: H2B 6. anxiety: ativan PO PRN 7. Dispo: anticipate home in AM History of Present Illness History of Present Illness anxious. still mild chest pressure, orthopnea Vitals Vitals Vital Signs Date Time Temp Pulse Resp B/P (MAP) Pulse Ox O2 Delivery O2 Flow Rate FiO2 04/13/17 14:46 64 177/71 04/13/17 14:00 100 04/13/17 13:58 16 Room Air 04/13/17 13:34 2.0 04/13/17 11:00 97.5 97.5 Physical Exam General: Alert, Oriented X3, Cooperative, No acute distress Heart: Regular rate Lungs: Clear Abdomen: Soft, No tenderness Extremities: No cyanosis, No edema Skin: No significant lesion Labs LABS Laboratory Tests Test 04/12/17 21:05 04/13/17 06:00 Heparin Anti-Xa Act, Unfractionated 0.20 IU/mL (0.30-0.70) 0.42 IU/mL (0.30-0.70) GARCÍA MEHTA MD Apr 13, 2017 15:49
[2017-04-13] MEDS ORDERED: NITROGLYCERIN 200 MCG/2 ML SYRINGE FOR CATH/VASC LAB. ONE (15:59)
[2017-04-13] MEDS ORDERED: Nicotine 21MG TD (16:20)
[2017-04-13] MEDS ORDERED: ANTI-COAG MONITOR BY PHARMACY. MC PRN (16:45)
[2017-04-13] MEDS: LOSARTAN POTASSIUM 50 MG TABLET. PO SCH (19:43)
[2017-04-13] MEDS: ATORVASTATIN CALCIUM 40 MG TABLET. PO SCH (19:43)
[2017-04-13] MEDS: FINASTERIDE 5 MG TABLET. PO SCH (19:43)
[2017-04-14 03:25] VITALS: BP 150/82
[2017-04-14 06:46] LABS: HEMATOCRIT 44.5 % (39.0-53.0); HEMOGLOBIN 15.1 g/dL (13.0-17.5); RED BLOOD COUNT 4.71 x10^6/uL (4.30-5.70); RED CELL DISTRIBUTION WIDTH 13.6 % (11.5-14.5); WHITE BLOOD COUNT 10.9 x10^3/uL (4.0-11.0)
[2017-04-14 07:00] VITALS: BP 148/81
[2017-04-14] MEDS ORDERED: ASPIRIN ENTERIC COATED 325 MG TABLET.DR. PO SCH (08:00)
[2017-04-14] MEDS ORDERED: PRASUGREL 10 MG TABLET. PO SCH (08:00)
[2017-04-14] MEDS ORDERED: amLODIPine BESYLATE 10 MG TABLET PO SCH (09:00)
[2017-04-14] MEDS: FENOFIBRATE 54 MG TABLET. PO SCH (09:14)
[2017-04-14] MEDS: ASPIRIN ENTERIC COATED 325 MG TABLET.DR. PO SCH (09:15)
[2017-04-14] MEDS: METOPROLOL TART IMMED RELEASE 25 MG TABLET. PO SCH (09:15)
[2017-04-14] MEDS: NICOTINE 21MG PATCH. TD SCH (09:15)
[2017-04-14] MEDS: DOCUSATE SODIUM 100 MG CAPSULE. PO SCH (09:16)
[2017-04-14] MEDS: HYDROcodone/APAP 7.5/325MG 1 TAB TABLET PO PRN (09:19)
[2017-04-14 11:00] VITALS: BP 140/73
--- NOTE | 2017-04-14 12:21 | PDOC ---
[facility] ADMINISTRATOR 04/14/17 1220: CARDIO Progress Notes Date and Time Date of Service 04/14/2017 Time of Evaluation 1150 Subjective Subjective: No Chest Pain, No shortness of breath, No Palpitations, No Dizziness Vitals Vitals Vital Signs Date Time Temp Pulse Resp B/P (MAP) Pulse Ox O2 Delivery O2 Flow Rate FiO2 04/14/17 11:00 98.0 63 18 140/73 (95) 96 Room Air 98.0 04/14/17 00:05 2.0 Weight Weight [ ] Laboratory Labs Laboratory Tests Test 04/14/17 05:20 White Blood Count 10.9 x10^3/uL (4.0-11.0) Red Blood Count 4.71 x10^6/uL (4.30-5.70) Hemoglobin 15.1 g/dL (13.0-17.5) Hematocrit 44.5 % (39.0-53.0) Mean Corpuscular Volume 94 fL (79-100) Mean Corpuscular Hemoglobin 32 pg (25-35) Mean Corpuscular Hemoglobin Concent 34 g/dL (31-37) Red Cell Distribution Width 13.6 % (11.5-14.5) Platelet Count 266 x10^3/uL (140-400) Physical Exam HEENT: Neck Supple W Full Motion Chest: Symmetric LUNGS: Other (basilar wheeze) Heart: S1S2, RRR (SR) Abdomen: Soft N/T Extremities: No Edema, No Calf Tenderness Neurology: alert, oriented, follow commands Other Exams right wrist arteriotomy site intact, no erythema or swelling, neurovascular status intact to RUE Assessment Assessment 1. NSTEMI: S/P PCI/ARNOLD to RCA, PDA,OM of LCx. Doing well 2. HLP: with high TG 700s 3. HTN: controlled. Unable to titrate up BB due to bradycardia episodes 4. Tobaccoism with likely COPD 5. Significant family hx of premature CAD and cardiomyopathy: Brother first [place] at 26 with CM, other brother with stroke, Father had [place]. Recommendations 1. Continue with current regimen. DAPT effient/ASA 2. Cardiac rehab, Lipids in 6-8 weeks. 3. Smoking cessation 4. F/U in office in 4-5 weeks. CINDY OLIVA MD 04/14/17 1601: CARDIO Progress Notes Assessment Assessment Patient seen and examined. Agree with PATENT LITIGATION ASSOCIATE's assessment and plan. s/p PCI/ARNOLD to RCA, LCX, stable and CP free OK for DC from cardiac standpoint. Follow up in one month NICHOLE BROWN APRN Apr 14, 2017 12:20 CINDY OLIVA MD Apr 14, 2017 16:01
[2017-04-14] MEDS ORDERED: NITR0.4T SL (12:57)
[2017-04-14] MEDS ORDERED: METO25TA4 PO (12:57)
[2017-04-14] MEDS ORDERED: NICO2GUM42 BC (12:57)
[2017-04-14] MEDS ORDERED: PRAS10TA9 PO (12:57)
[2017-04-14] MEDS ORDERED: ATOR40TA59 PO (13:00)
[2017-04-14] MEDS ORDERED: ASPI325T11 PO (13:00)
[2017-04-14] MEDS ORDERED: AMLO10TA2 PO (13:00)
[2017-04-14] MEDS ORDERED: FENO54TA PO (13:00)
--- NOTE | 2017-04-15 22:42 | DS ---
DATE OF DISCHARGE: 04/14/2017 CHIEF COMPLAINT: Chest pain. HOSPITAL COURSE: The patient is a 61-year-old gentleman who presented to the hospital with chest pain and was found with an NSTEMI. For this, he was taken to cardiac catheterization lab and required a surprising number of 5 stents. He tolerated the procedure without any difficulties. He had been on cholesterol-lowering medications in the past; however, was shown to be not optimally controlled on his cholesterol and had significantly elevated triglycerides as well for which medications were adjusted and fenofibrate was added. Likewise, poorly controlled hypertension, Norvasc was added to his home regimen. DISCHARGE PHYSICAL EXAMINATION: VITAL SIGNS: Blood pressure of 140/73, heart rate of 63, respiratory rate at 18. He is afebrile. GENERAL: This is a 61-year-old overweight gentleman, alert and oriented, no acute distress. LUNGS: Clear. HEART: Regular rate and rhythm. ABDOMEN: Has positive bowel sounds, soft, nontender. EXTREMITIES: Show no edema. DISCHARGE DISPOSITION: To home. DISCHARGE CONDITION: Improved. DISCHARGE MEDICATIONS: Please refer to MAR. DISCHARGE INSTRUCTIONS: The patient will follow up with his primary care physician. GARCÍA MEHTA MD DR: JUSTINE/nts JOB#: [id number] / [id number] KRISTEL Mensah
== END 2017-04-14 13:40 | disposition home or self-care (01) | DRG 246 ==
LOC: 2 NORTH 18:15
PROVIDERS: ADMIT Internal Medicine; ATTEND Internal Medicine
PROC: 027237Z Dilation of Coronary Artery, Three Arteries with Four or More Drug-eluting Intraluminal Devices, Percutaneous Approach (ICD-10-PCS; principal; 2017-04-13)
PROC: 4A023N7 Measurement of Cardiac Sampling and Pressure, Left Heart, Percutaneous Approach (ICD-10-PCS; 2017-04-13)
PROC: B2111ZZ Fluoroscopy of Multiple Coronary Arteries using Low Osmolar Contrast (ICD-10-PCS; 2017-04-13)
DX: I21.4 Non-ST elevation (NSTEMI) myocardial infarction (principal); I10 Essential (primary) hypertension; E78.5 Hyperlipidemia, unspecified; F41.9 Anxiety disorder, unspecified; F17.210 Nicotine dependence, cigarettes, uncomplicated; I25.10 Atherosclerotic heart disease of native coronary artery without angina pectoris; K21.9 Gastro-esophageal reflux disease without esophagitis; M19.90 Unspecified osteoarthritis, unspecified site; R20.8 Other disturbances of skin sensation; M54.5 Low back pain; G89.29 Other chronic pain; Z82.3 Family history of stroke; Z82.49 Family history of ischemic heart disease and other diseases of the circulatory system; Z79.899 Other long term (current) drug therapy; Z71.6 Tobacco abuse counseling
CPT/HCPCS: 36415; 71010; 80048; 80053; 80061; 81001; 82553; 83735; 84100; 84484; 85025; 85027; 85520; 85610; 92928; 92929; 93005; 93306; 93458; 94250; 94640; 94760; 99152; 99153; 99406; C1725; C1769; C1874; C1892; J0360; J0583; J1644; J2250; J2270; J2405; J3010; J3490; J7613; Q9967; J2001

== ENCOUNTER → 2017-11-08 | Outpatient (CLI) | payer BC | END | disposition home or self-care (01) | LOC: KCIC MRI 11:49 | DX: M51.16 Intervertebral disc disorders with radiculopathy, lumbar region (principal) | CPT/HCPCS: 72148 ==

== ENCOUNTER → 2021-05-02 | Outpatient (CLI) | payer BC ==
[~2021-05-02] MED LIST: ALBU2.5V14 NEB; AMLO-187 PO; ASPI325T11 PO; ATOR20TA58 PO; ATOR40TA59 PO; BYSTOLIC10 MG PO; FAMO20TA5 PO; FENO54TA PO; FINA5TAB4 PO; HYDR-2765 PO; METO25TA4 PO; NAPR-514 PO; NICO2GUM42 BC; NITR0.4T24 SL; Nicotine 21MG TD; PRAS10TA9 PO; REGADENOSON 0.4 MG/5 ML DISP.SYRIN. IV ONE; TADA20TA PO; VALS320T2 PO
--- NOTE | 2021-05-02 12:56 | CARD ---
MR#: [id number] Date of Study: 05/02/2021 Ordering Physician: ARMINDA APRIKH, Referring Physician: ARMINDA PARIKH, Tech: Jerald Rizvi [facility] APPROVED REPORT EXAM: Two-dimensional and M-mode echocardiogram with Doppler and color Doppler. Other Information Quality : FairHR: 65bpm Rhythm : NSRTechnically limited study due to smoking. INDICATION Dyspnea Cardiac Disease: RISK FACTORS Smoking 2D DIMENSIONS Left Atrium(2D)3.2 (1.6-4.0cm)IVSd1.4 (0.7-1.1cm) Aortic Root(2D)3.6 (2.0-3.7cm)LVDd3.5 (3.9-5.9cm) LVOT Diameter2.0 (1.8-2.4cm)PWd1.2 (0.7-1.1cm) LVDs1.8 (2.5-4.0cm)FS (%) 48.1 % SV40.4 mlLVEF(%)80.5 (>50%) Aortic Valve AoV Peak Pranav.162.9cm/sAoV VTI36.2cm AO Peak GR.10.6mmHgLVOT Peak Pranav.128.7cm/s AO Mean GR.6mmHgAVA (VMAX)2.53cm2 Mitral Valve MV E Lxtlglfa67.5cm/sMV E Peak Gr.4mmHg MV DECEL [id number] A Xndypttd15.8cm/s MV E Mean Gr.1mmHgE/A Ratio0.9 Pulmonary Valve PV Peak Adhcjyot88.3cm/s Tricuspid Valve TR P. Zxfrgroe851yj/sTR Peak Gr.28mmHg Pulmonary Vein S1 Zlqzjaww43.4cm/sD2 Lsiyjwyw48.5cm/s LEFT VENTRICLE The left ventricle is normal size. There is mild to moderate concentric left ventricular hypertrophy. The left ventricular systolic function is normal and the ejection fraction is within normal range. T he Ejection Fraction is 60-65%. There is normal LV segmental wall motion. Transmitral Doppler flow pa ttern is Grade I-abnormal relaxation pattern. No left ventricle thrombus noted on this study. There i s no ventricular septal defect visualized. There is no left ventricular aneurysm. There is no mass no charlie in the left ventricle. RIGHT VENTRICLE The right ventricle is normal size. There is normal right ventricular wall thickness. The right ventr icular systolic function is normal. ATRIA The left atrium size is normal. The right atrium size is normal. The interatrial septum is intact wit h no evidence for an atrial septal defect or patent foramen ovale as noted on 2-D or Doppler imaging. AORTIC VALVE Aortic valve is not well seen but is probably trileaflet. Doppler and Color Flow revealed no signific ant aortic regurgitation. There is no significant aortic valvular stenosis. There is no aortic valvul ar vegetation. MITRAL VALVE The mitral valve is normal in structure and function. There is no evidence of mitral valve prolapse. There is no mitral valve stenosis. Doppler and Color-flow revealed trace to mild mitral regurgitation . TRICUSPID VALVE The tricuspid valve is normal in structure and function. Doppler and Color Flow revealed trace to mil d tricuspid regurgitation. The PA pressure was estimated at 33 mmHg. There is no tricuspid valve prol apse or vegetation. There is no tricuspid valve stenosis. PULMONIC VALVE Doppler and Color Flow revealed no pulmonic valvular regurgitation. There is no pulmonic valvular darius nosis. GREAT VESSELS The aortic root is normal in size. The ascending aorta is normal in size. The IVC is normal in size a nd collapses >50% with inspiration. PERICARDIAL EFFUSION There is no pleural effusion. There is no evidence of significant pericardial effusion. Critical Notification Critical Value: No <Conclusion> The left ventricular systolic function is normal and the ejection fraction is within normal range. Th e Ejection Fraction is 60-65%. There is normal LV segmental wall motion. Signed by : Arminda Parikh, Electronically Approved : 05/02/2021 12:56:17
--- NOTE | 2021-05-02 14:04 | RAD ---
MR#: [id number] Date of Study: 05/02/2021 Ordering Physician: ARMINDA MATTHEWS, Referring Physician: ELMER SANCHEZ Tech: FRANCISCA Mayen APPROVED REPORT Test Type: Pharmacological Stress Nurse/Tech: Kayleen Hubbard RN Test Indications: CAD Cardiac History: COPD, PTCA, smoker, HTN Medications: See Electronic Medical Record Medical History: See Electronic Medical Record Resting ECG: SR Resting Heart Rate: 72 bpm Resting Blood Pressure: 143/70mmHg Pretest Chest Pain: None Nurse/Tech Notes Lungs CTA, S1S2. Pt attempted treadmill but was unable to reach target heart rate due to leg cramps. Consent: The procedure was explained to the patient in lay terms. Informed consent was witnessed. Chapin eout was entered into Diversion. History and Stress Test performed by FRANCISCA Mayen Pharm. Details Pharmacologic stress testing was performed using 0.4mg per 5ml of regadenoson given intravenously ove r 7-10 seconds. Stress Symptoms No chest pain or symptoms. POST EXERCISE Reason for Termination: Infusion complete Max HR: 95 bpm Max Blood Pressure: 146/57mmHg Blood Pressure response to exercise: Normal blood pressure response during stress. Heart Rate response to exercise: normal response Chest Pain: No. Arrhythmia: Yes. PAC ST Change: No. INTERPRETATION Stress EKG Conclusion: No evidence of stress induced EKG changes. Imaging Protocol IMAGE PROTOCOL: Rest Tc-99m/stress Tc-99m 1 day Rest: Stress: Viability: Radiopharm.Tc99m AspblzqabLf60w Sestamibi Gidc24sDf 32mCi Duration 15min. 13min. Img Date 05/02/2021 05/02/2021 Inj-Img Nvbl80dur. 60min. Post-Injection Exercise: 1 MINUTE Rest Admin Site:IV - Right AntecubitalAdministrator:FRANCISCA Mayen Stress Admin Site: IV - Right AntecubitalAdministrator: FLAKO Storey, ARRT (R)(N) STRESS DATA End Diast. Vol.79.0mlLVEDV index BSA39.0ml End Syst. Vol.13.0mlLVESV index BSA7.0ml Myocardial Liet167.0gEject. Pqtrezvd94.0% Stress Scores Regional WT1.00Summed WT7.00 Regional WM0.00Summed WM1.00 LV Perfusion There is a small to moderate sized fixed basal inferior wall defect suggestive of prior infarct versu s diaphragmatic attenuation. Based on lack of Q waves on EKG and normal wall motion in this area thi s is likely artifactual. Wall Motion Normal LV systolic function. EF 55% LV Perf. Quant 17 Seg. SSS5.00 17 Seg. SRS4.00 17 Seg. SDS2.00 Stress Defect Extent (% LAD)0.00Rest Defect Extent (% LAD)0.00Rev. Defect Extent (% LAD)0.00 Stress Defect Extent (% LCX) 25.00Rest Defect Extent (% LCX)8.80Rev. Defect Extent (% LCX)1.30 Stress Defect Extent (% RCA)10.00Rest Defect Extent (% RCA)6.70Rev. Defect Extent (% RCA)3.30 Stress Defect Extent (% GABBIE)9.30Rest Defect Extent (% GABBIE)2.80Rev. Defect Extent (% GABBIE)2.80 Other Information Quality:Fair Risk Assessment: Low Risk Conclusion 1. No evidence of EKG changes with stress testing. 2. Normal perfusion at stress/rest. 3. Low risk study. 4. EF > 60%. Signed by : Arminda Matthews, Electronically Approved : 05/02/2021 14:03:42
== END ==
LOC: NM 09:20
PROVIDERS: ATTEND Internal Medicine Cardiovascular Disease
DX: I08.1 Rheumatic disorders of both mitral and tricuspid valves (principal); R06.00 Dyspnea, unspecified; I25.10 Atherosclerotic heart disease of native coronary artery without angina pectoris; F17.210 Nicotine dependence, cigarettes, uncomplicated
CPT/HCPCS: 78452; 93017; 93306; A9500; J2785

== ENCOUNTER → 2021-06-06 | Outpatient (CLI) | payer BC ==
[~2021-06-06] MED LIST changes: -REGADENOSON 0.4 MG/5 ML DISP.SYRIN. IV ONE
--- NOTE | 2021-06-06 11:45 | RAD ---
AP and Lateral Views of the Chest 06/06/2021 9:24 AM Indication: Reason: COPD, CHEST CONGESTION X 10 MONTHS / Spl. Instructions: / History: Comparison: Chest radiograph April 13, 2017 Findings: There is no focal consolidation or infiltrate identified. The cardiomediastinal silhouette is within normal limits. There is no evidence of pneumothorax or pleural effusion. No acute osseous a bnormalities are identified. Impression: No evidence of acute cardiopulmonary process. Electronically signed by: Augustine Isaacs MD (06/06/2021 11:43 AM) [id number]
== END ==
LOC: RAD 09:10
PROVIDERS: ATTEND Internal Medicine Pulmonary Disease
DX: J44.9 Chronic obstructive pulmonary disease, unspecified (principal)
CPT/HCPCS: 71046